=== PATIENT | female | born 1935 | race Caucasian/White ===

== ENCOUNTER 2022-04-06 08:32 | Emergency (ER) | payer MEDICARE, BC ==
[~2022-04-06] VITALS: Ht 157.5 cm; Wt 81.8 kg
[2022-04-06] VITALS (10 sets, daily range): BP systolic 137–170; BP diastolic 61–86
[~2022-04-06 08:32] MED LIST: ADLT ASA LOW81 MG PO; HYDRALAZINE25 MG PO; HYDROCHLORO25 MG/TAB PO; LORTAB 5 OR; METO100T50 PO; OMEPRAZOLE20 MG PO; ZOCOR20 MG PO
[2022-04-06 09:34] LABS: HEMATOCRIT 40.5 % (37.0-47.0); HEMOGLOBIN 13.5 g/dl (12.0-16.0); IMMATURE GRANULOCYTES 0.2 % (0.0-5.0); MEAN CELL VOLUME 91.8 fL CALC (80.0-100.0); MEAN CORPUSCULAR HGB 30.6 pG CALC (26.0-32.0); MEAN CORPUSCULAR HGB CONC 33.3 g/dL CAL (32.0-36.0); NEUT# 9.52 thou/uL (2.00-7.15); RED BLOOD COUNT 4.41 mill/uL (4.20-5.60)
[2022-04-06 09:40] LABS: ALBUMIN 4.2 g/dL (3.2-5.0); CREATININE 1.1 mg/dL (0.5-1.0); POTASSIUM 3.8 mmol/l (3.5-5.1); TOTAL PROTEIN 7.4 g/dL (6.3-8.2)
[2022-04-06] MEDS ORDERED: CLEOCIN300 MG PO (10:51)
== END 2022-04-06 11:20 | disposition home or self-care (01) ==
LOC: ED 08:32
DX: K04.7 Periapical abscess without sinus (principal); K08.409 Partial loss of teeth, unspecified cause, unspecified class; I10 Essential (primary) hypertension; I48.91 Unspecified atrial fibrillation; Z88.0 Allergy status to penicillin; Z91.041 Radiographic dye allergy status; Z20.822 Contact with and (suspected) exposure to COVID-19
CPT/HCPCS: Q9967